=== PATIENT | male | born 1945 | race Hispanic/Latino ===

== ENCOUNTER 2019-03-06 14:45 | Emergency (ER) | payer OTHER ==
[2019-03-06] MEDS ORDERED: MORPHINE 4 MG/ML SYR ONE (15:41)
[2019-03-06] MEDS ORDERED: NA CHLORIDE 0.9% 500 ML ONE ×3 (15:45→16:29)
[2019-03-06] MEDS ORDERED: ONDANSETRON 4 MG/2 ML VIAL ONE (15:45)
--- NOTE | 2019-03-06 15:46 | EKG ---
Test Date: 2019-03-06 Test Time: 15:18:55 Telemetry Nurse: RUSSELL MEASUREMENT RESULTS: Intervals: Rate: 101 IA: 148 QRSD: 70 QT: 370 QTc: 479 [place]: P: 17 IA: 148 QRS: 47 T: 20 INTERPRETIVE STATEMENTS: Sinus tachycardia Possible Left atrial enlargement Borderline ECG No previous ECG available for comparison Electronically Signed On 03-06-19 15:46:00 CDT by Jermain Wells
[2019-03-06 15:49] LABS: Absolute Lymphocytes (CBC) 0.9 K/uL (0.7-4.9); Basophils % 0.4 % (0-1.3); Hematocrit 43.9 % (39.6-49.0); Lymphocytes % 18.5 % (15.3-44.8); MPV 8.1 fL (7.6-11.3); RBC Red Blood Cell Count 4.99 M/uL (4.33-5.43)
[2019-03-06 15:50] LABS: Protime INR 1.22
--- NOTE | 2019-03-06 15:50 | RAD REPORT ---
EXAM DESCRIPTION: RAD - Chest Single View - 03/06/2019 3:42 pm CLINICAL HISTORY: abdominal pain Chest pain. COMPARISON: <Comparisons> FINDINGS: Portable technique limits examination quality. The lungs are grossly clear. The heart is normal in size. No displaced fractures.Right-sided venous c atheter tip in the SVC. IMPRESSION: No acute intrathoracic process suspected.
[2019-03-06 16:00] LABS: ALT/SGPT 47 U/L (12-78); AST/SGOT 48 U/L (15-37); Albumin 3.5 g/dL (3.4-5.0); Alkaline Phosphatase 216 U/L (45-117); BUN Blood Urea Nitrogen 13 mg/dL (7-18); Bicarbonate 27 mmol/L (21-32); Bilirubin Direct 0.3 mg/dL (0-0.2); Bilirubin Total 0.9 mg/dL (0.2-1.0); Glucose Level 101 mg/dL (74-106); Lipase 193 U/L (73-393); Magnesium 2.3 mg/dL (1.8-2.4); NT PRO-BNP 187 pg/mL (<125); Potassium 3.8 mmol/L (3.5-5.1); Protein, Total 8.3 g/dL (6.4-8.2); Sodium Level 139 mmol/L (136-145); Troponin (Emerg Dept Use Only) < 0.02 ng/mL (0.0-0.045)
--- NOTE | 2019-03-06 16:48 | RAD REPORT ---
EXAM DESCRIPTION: CTAbdomen Pelvis W Contrast - 03/06/2019 4:32 pm CLINICAL HISTORY: Abdominal pain. ABD PAIN COMPARISON: No comparisons TECHNIQUE: Biphasic CT imaging of the abdomen and pelvis was performed with 100 ml non-ionic IV cont rast. All CT scans are performed using dose optimization technique as appropriate and may include automated exposure control or mA/KV adjustment according to patient size. FINDINGS: The lung bases are clear. The liver demonstrates a coarsened irregular nodular appearance. Ill-defined hypodense lesion is pres ent with internal hyperdensity in the anterosuperior right lobe measuring 5.2 x 3.6 cm. This may be r elated to a treated metastatic lesion. There is additional multiple vague hypodense lesions in the po sterior inferior right lobe of the liver as well of varying sizes, likely additional metastatic depos its. Metallic clips are seen in the region of the hepatic hilum. The adrenal glands and pancreas show no acute process. The spleen is normal. Complex cystic mass is present emanating from the superior posterior aspect of the left kidney measur ing 3.5 x 3.5 cm. Cyst is also noted anterior inferior right kidney measuring 2.2 cm. No hydronephros is. Irregular mass is seen in the rectum with several surrounding perirectal lymph nodes. The mass measur es approximately 3.0 x 3.0 cm. No bowel obstruction is evident. The appendix is not identified as a discrete structure, however, no secondary findings of appendicitis are identified. No lytic or blastic bone lesion. IMPRESSION: An acute abnormality is not discerned. There are multiple findings compatible with known history of stage IV colon malignancy present. No pr ior study is available this institution for direct comparison of disease status. Mildly complex cystic mass posterosuperior left kidney measuring 3.5 cm.
[2019-03-06 17:35] LABS: Urine Blood TRACE (NEG); Urine Glucose NEGATIVE (NEG); Urine Protein NEGATIVE (NEG); Urine Specific Gravity 1.015 (1.005-1.030); Urine pH 8.5 (5.0-7.0)
[2019-03-06 17:47] LABS: Urine Bacteria <20 /HPF (NONE SEEN); Urine Culture Reflex Order NOT NEEDED; Urine RBC <5 /HPF (NONE SEEN)
[2019-03-06] MEDS ORDERED: HYDROCODONE/APAP 7.5/325 MG TAB ONE (19:24)
--- NOTE | 2019-03-06 19:25 | EDPHYS ---
Physician Documentation [facility] Name: Rodri Kahn Age: 73 yrs Sex: Male : 1945 Arrival Date: 03/06/2019 Time: 14:46 Bed 30 Private MD: ED Physician Fabio Rosas HPI: 03/06 15:27 This 73 yrs old Male presents to ER via Ambulatory with complaints of cp Abdominal Pain. Historical: - Allergies: 14:58 No Known Allergies; hb - Home Meds: 14:58 Atenolol Oral [Active]; Eliquis oral oral [Active]; hb 14:59 Lonsurf oral oral [Active]; hb - PMHx: 14:58 Colon CA - Stage 4; Hypertension; hb - Immunization history:: Adult Immunizations not up to date. - Social history:: Smoking status: Patient/guardian denies using tobacco. - Ebola Screening: : No symptoms or risks identified at this time. Exam: 15:30 ECG was reviewed by the Attending Physician. cp Vital Signs: 14:58 BP 175 / 80; Pulse 95; Resp 20; Temp 98.1; Pulse Ox 100% on R/A; Weight 70.31 kg; hb Height 5 ft. 6 in. (167.64 cm); Pain 10/10; 16:27 BP 153 / 73; Pulse 88; Resp 18; Pulse Ox 98% on R/A; wh 18:01 BP 150 / 90; Pulse 90; Resp 14; Pulse Ox 100% on R/A; wh 19:15 BP 162 / 86; Pulse 95; Resp 18; Pulse Ox 98% on R/A; wh 14:58 Body Mass Index 25.02 (70.31 kg, 167.64 cm) hb MDM: 15:27 Patient medically screened. cp 16:00 Differential diagnosis: acute coronary syndrome, appendicitis, bowel obstruction, cp cholecystitis, Cholelithiasis, diverticulitis, gastritis, non-specific abd pain, pancreatitis, Peptic Ulcer Disease, Perf. Duodenal Ulcer, Perf. Gastric Ulcer, Ureterolithiasis, urinary tract infection. 18:10 Data reviewed: vital signs, nurses notes, lab test result(s), EKG, radiologic studies, cp CT scan, plain films, and as a result, I will repeat 2 hr lactate and if improved discharge to home. 03/06 15:25 Order name: Basic Metabolic Panel 03/06 15:25 Order name: CBC with Diff 03/06 15:25 Order name: LFT's; Complete Time: 16:06 cp 03/06 16:06 Interpretation: Normal except: AST 48; ALK 216; BILID 0.3; TP 8.3; GLOB 4.8; A/G 0.7. 03/06 15:25 Order name: Magnesium; Complete Time: 16:06 cp 03/06 15:25 Order name: NT PRO-BNP; Complete Time: 16:06 cp 03/06 15:25 Order name: PT-INR; Complete Time: 16:00 cp 03/06 16:00 Interpretation: Abnormal: PT 14.3. 03/06 15:25 Order name: Troponin (emerg Dept Use Only); Complete Time: 16:06 cp 03/06 15:25 Order name: Lactate; Complete Time: 16:00 03/06 16:00 Interpretation: Abnormal: LAC 4.6. 03/06 15:25 Order name: Lipase; Complete Time: 16:06 03/06 15:28 Order name: Basic Metabolic Panel; Complete Time: 16:06 EDMS 03/06 16:06 Interpretation: Normal except: GFR 71. 03/06 15:28 Order name: CBC with Automated Diff; Complete Time: 16:00 EDMS 03/06 16:06 Interpretation: Normal except: RDW 16.1; LENA% 74.1. 03/06 16:58 Order name: Urine Microscopic Only; Complete Time: 18:09 03/06 17:33 Order name: Urine Dipstick--Ancillary (enter results) 03/06 17:36 Order name: Urine Dipstick-Ancillary; Complete Time: 18:09 EDMS 03/06 18:09 Interpretation: Normal except: UBLD TRACE; UPH 8.5. 03/06 15:25 Order name: XRAY Chest (1 view); Complete Time: 16:00 cp 03/06 15:25 Order name: EKG; Complete Time: 15:29 cp 03/06 15:25 Order name: Cardiac monitoring; Complete Time: 15:32 cp 03/06 15:25 Order name: EKG - Nurse/Tech; Complete Time: 15:33 cp 03/06 15:25 Order name: IV Saline Lock; Complete Time: 15:33 cp 03/06 15:25 Order name: Labs collected and sent; Complete Time: 15:33 cp 03/06 15:25 Order name: O2 Per Protocol; Complete Time: 15:33 cp 03/06 15:25 Order name: O2 Sat Monitoring; Complete Time: 15:33 cp 03/06 15:28 Order name: CT Abd/Pelvis - IV Contrast Only; Complete Time: 16:55 cp 03/06 19:10 Order name: Lactate Sepsis 2 HR Follow-up; Complete Time: 19:23 EDMS 03/06 19:22 Interpretation: Reviewed. 03/06 16:58 Order name: Urine Dipstick-Ancillary (obtain specimen); Complete Time: 17:29 cp EC:30 Rate is 101 beats/min. Rhythm is regular. WV interval is normal. QRS interval is cp normal. QT interval is normal. Interpreted by me. Reviewed by me. Administered Medications: Discontinued: NS 0.9% 500 ml IV at 100 ml/hr continuous 15:33 Drug: NS 0.9% 500 ml Route: IV; Rate: bolus; Site: right antecubital; 19:50 Follow up: Response: No adverse reaction; IV Status: Completed infusion 15:34 Drug: Zofran 4 mg Route: IVP; Site: right antecubital; 15:34 Drug: morphine 4 mg Route: IVP; Site: right antecubital; wh 19:50 Follow up: Response: No adverse reaction 15:57 Drug: NS 0.9% 500 ml Route: IV; Rate: 100 ml/hr; Site: right antecubital; wh 17:13 Drug: NS 0.9% 1000 ml Route: IV; Rate: 500 ml/hr; Site: right antecubital; mg2 19:49 Follow up: Response: No adverse reaction; IV Status: Completed infusion 19:09 Drug: Hydrocodone-Acetaminophen (7.5 mg-325 mg) 1 tabs Route: PO; 19:49 Follow up: Response: No adverse reaction Disposition: 03/06/19 19:24 Discharged to Home. Impression: Unspecified abdominal pain. - Condition is Stable. - Discharge Instructions: Abdominal Pain, Adult. - Prescriptions for Zofran 4 mg Oral Tablet - take 1 tablet by ORAL route every 12 hours As needed; 20 tablet. - Medication Reconciliation Form, Thank You Letter, Antibiotic Education, Prescription Opioid Use form. - Follow up: Private Physician; When: 1 - 2 days; Reason: Recheck today's complaints. - Problem is new. - Symptoms have improved. Signatures: Dispatcher [employer] EDMS Tobi Erickson PA PA cp Shakira Fulton, ASHLY RN Tiffanie Flynn Sandeep Perales RN RN mg2 Corrections: (The following items were deleted from the chart) 18:10 03/05 16:00 Differential diagnosis: bowel obstruction, diverticulitis, gastritis, cp non-specific abd pain, pancreatitis, Peptic Ulcer Disease, Perf. Duodenal Ulcer, Perf. Gastric Ulcer, Ureterolithiasis, urinary tract infection, cp 03/06 19:51 19:24 03/06/2019 19:24 Discharged to Home. Impression: Unspecified abdominal pain. Condition is Stable. Forms are Medication Reconciliation Form, Thank You Letter, Antibiotic Education, Prescription Opioid Use. Follow up: Private Physician; When: 1 - 2 days; Reason: Recheck today's complaints. Problem is new. Symptoms have improved. cp
--- NOTE | 2019-03-06 19:25 | ER ---
Nurse's Notes [facility] Name: Rodri Kahn Age: 73 yrs Sex: Male : 1945 Arrival Date: 03/06/2019 Time: 14:46 Bed 30 Private MD: Diagnosis: Unspecified abdominal pain Presentation: 03/06 14:56 Presenting complaint: Upper abdominal pain 10/10 x 3 hrs. Denies N/V/D/fever. Hx of hb colon CA, takes Lonsurf. Transition of care: patient was not received from another setting of care. Onset of symptoms was March 06, 2019. Risk Assessment: Do you want to hurt yourself or someone else? Patient reports no desire to harm self or others. Care prior to arrival: None. 14:56 Method Of Arrival: Ambulatory hb 14:56 Acuity: JUAN 3 hb 16:23 Initial Sepsis Screen: Does the patient meet any 2 criteria? HR > 90 bpm. Does the patient have a suspected source of infection? No. Patient's initial sepsis screen is negative. Triage Assessment: 16:23 General: Behavior is calm, cooperative, appropriate for age. Historical: - Allergies: 14:58 No Known Allergies; hb - Home Meds: 14:58 Atenolol Oral [Active]; Eliquis oral oral [Active]; hb 14:59 Lonsurf oral oral [Active]; hb - PMHx: 14:58 Colon CA - Stage 4; Hypertension; hb - Immunization history:: Adult Immunizations not up to date. - Social history:: Smoking status: Patient/guardian denies using tobacco. - Ebola Screening: : No symptoms or risks identified at this time. Screenin:22 Abuse screen: Denies threats or abuse. Denies injuries from another. Nutritional screening: No deficits noted. Tuberculosis screening: No symptoms or risk factors identified. Fall Risk None identified. Assessment: 15:30 General: Appears in no apparent distress. uncomfortable. Pain: Complains of pain in epigastric area and abdomen diffusely Pain does not radiate. Pain currently is 10 out of 10 on a pain scale. Quality of pain is described as aching, Pain began 4 hours ago. Is intermittent. Neuro: Level of Consciousness is awake, alert, obeys commands, Oriented to person, place, time, situation, Appropriate for age Television Director are equal bilaterally. Cardiovascular: Heart tones S1 S2. Respiratory: Airway is patent Respiratory effort is even, unlabored, Respiratory pattern is regular, symmetrical, Breath sounds are clear bilaterally. GI: Abdomen is flat, non-distended, Bowel sounds present X 4 quads. Abd is soft and non tender. : No signs and/or symptoms were reported regarding the genitourinary system. EENT: No signs and/or symptoms were reported regarding the EENT system. Derm: Skin is intact, is healthy with good turgor, Skin is pink, warm \T\ dry. normal. Musculoskeletal: Range of motion: intact in all extremities. 16:26 Reassessment: Patient appears in no apparent distress at this time. Patient and/or wh family updated on plan of care and expected duration. Pain level reassessed. Patient is alert, oriented x 3, equal unlabored respirations, skin warm/dry/pink. Patient states feeling better. Patient states symptoms have improved. 17:58 Reassessment: Patient appears in no apparent distress at this time. Patient and/or wh family updated on plan of care and expected duration. Pain level reassessed. Patient is alert, oriented x 3, equal unlabored respirations, skin warm/dry/pink. Patient states feeling better. Patient states symptoms have improved. 18:52 Reassessment: Patient appears in no apparent distress at this time. Patient and/or wh family updated on plan of care and expected duration. Pain level reassessed. Patient is alert, oriented x 3, equal unlabored respirations, skin warm/dry/pink. Patient states feeling better. Patient states symptoms have improved. 19:43 Reassessment: Patient appears in no apparent distress at this time. Patient and/or wh family updated on plan of care and expected duration. Pain level reassessed. Patient is alert, oriented x 3, equal unlabored respirations, skin warm/dry/pink. Patient states feeling better. Patient states symptoms have improved. Vital Signs: 14:58 BP 175 / 80; Pulse 95; Resp 20; Temp 98.1; Pulse Ox 100% on R/A; Weight 70.31 kg; hb Height 5 ft. 6 in. (167.64 cm); Pain 10/10; 16:27 BP 153 / 73; Pulse 88; Resp 18; Pulse Ox 98% on R/A; wh 18:01 BP 150 / 90; Pulse 90; Resp 14; Pulse Ox 100% on R/A; wh 19:15 BP 162 / 86; Pulse 95; Resp 18; Pulse Ox 98% on R/A; wh 14:58 Body Mass Index 25.02 (70.31 kg, 167.64 cm) hb ED Course: 14:46 Patient arrived in ED. mr 14:57 Triage completed. hb 14:58 Arm band placed on. hb 15:03 Tiffanie Flynn is Primary Nurse. wh 15:15 Inserted saline lock: 20 gauge in right antecubital area, using aseptic technique. wh Blood collected. 15:16 Tobi Erickson PA is PHCP. cp 15:16 Fabio Rosas MD is Attending Physician. cp 15:26 EKG done, by biomedical technician. reviewed by Fabio Rosas MD. at1 15:43 XRAY Chest (1 view) In Process Unspecified. EDMS 15:56 Notified ED physician of a critical lab result(s). lactate 4.6. tw2 16:24 Patient has correct armband on for positive identification. Placed in gown. Bed in low wh position. Call light in reach. Side rails up X 1. chemistry associate on. Pulse ox on. NIBP on. 16:34 CT Abd/Pelvis - IV Contrast Only In Process Unspecified. EDMS 18:44 Repeat lab(s) drawn. by me, sent to lab. jp3 19:44 No provider procedures requiring assistance completed. IV discontinued, intact, wh bleeding controlled, No redness/swelling at site. Administered Medications: Discontinued: NS 0.9% 500 ml IV at 100 ml/hr continuous 15:33 Drug: NS 0.9% 500 ml Route: IV; Rate: bolus; Site: right antecubital; 19:50 Follow up: Response: No adverse reaction; IV Status: Completed infusion 15:34 Drug: Zofran 4 mg Route: IVP; Site: right antecubital; 15:34 Drug: morphine 4 mg Route: IVP; Site: right antecubital; 19:50 Follow up: Response: No adverse reaction 15:57 Drug: NS 0.9% 500 ml Route: IV; Rate: 100 ml/hr; Site: right antecubital; 17:13 Drug: NS 0.9% 1000 ml Route: IV; Rate: 500 ml/hr; Site: right antecubital; mg2 19:49 Follow up: Response: No adverse reaction; IV Status: Completed infusion 19:09 Drug: Hydrocodone-Acetaminophen (7.5 mg-325 mg) 1 tabs Route: PO; 19:49 Follow up: Response: No adverse reaction Outcome: 19:24 Discharge ordered by . latrice 19:44 Discharged to home ambulatory. 19:44 Condition: improved 19:44 Discharge instructions given to patient, family, Instructed on discharge instructions, follow up and referral plans. medication usage, POC Abd pain Demonstrated understanding of instructions, follow-up care, medications, POC Prescriptions given X 1. 19:51 Patient left the ED. Signatures: Dispatcher [employer] EDRI LexAnitha mr CleaningGiovana, dental prosthetist EKG Tat1 Tobi Erickson PA PA cp Baxter, Heather, RN RN hb Denisha Olson RN RN tw2 Tiffanie Flynn Sandeep Perales RN RN mg2 Chris Segundo jp3 Corrections: (The following items were deleted from the chart) 14:59 14:56 Presenting complaint: Upper abdominal pain 10/10 x 3 hrs. Denies N/V/D/fever hb hb
[2019-03-06] MEDS ORDERED: SOD POLYSTYREN SUL 15 GM/60 ML UCUP ONE (21:54)
== END 2019-03-06 19:51 | disposition home or self-care (01) ==
LOC: ER 14:45
DX: R10.9 Unspecified abdominal pain (principal); I10 Essential (primary) hypertension; Z85.038 Personal history of other malignant neoplasm of large intestine; Z88.8 Allergy status to other drugs, medicaments and biological substances
CPT/HCPCS: 93005; 85025; 80048; 36415; 83735; 85610; 80076; 83605 ×2; 84484; 83690; 83880; 74177; 71045; Q9967; J2405; 81003; 81015